=== PATIENT | female | born 1985 | race Caucasian/White ===

== ENCOUNTER 2017-09-28 16:48 | Emergency (ER) | payer BC, OTHER ==
[~2017-09-28] VITALS: Ht 170.2 cm; Wt 104.3 kg
[~2017-09-28 16:48] MED LIST: CETI5 PO; Duoneb 2.5-0.5 M3 ML IH; FLUSAL2505 INH; METCAR750 PO; MONT10T PO; Ortho Tri-Cycl1 EACH; PANT40 PO; Percocet 5-3251 EACH PO; ZYRTEC10 M1; Zithromax250 MG PO
[2017-09-28] MEDS ORDERED: AZIT250 PO (17:48)
[2017-09-28] MEDS ORDERED: RIZATRIPTAN10 MG PO (17:49)
[2017-09-28] MEDS ORDERED: ZYRTEC10 M1 PO (17:49)
[2017-09-28] MEDS ORDERED: PROP80ER PO (17:49)
[2017-09-28 18:42] LABS: Influenza A Negative (NEGATIVE); Influenza B Negative (NEGATIVE)
[2017-09-28] MEDS ORDERED: Albuterol2.5 MG/0.5 INH (20:08)
[2017-09-28] MEDS ORDERED: BUDE.5 NEB (20:08)
[2017-09-28] MEDS ORDERED: Duoneb 2.5-0.5 M3 ML INH (20:08)
== END 2017-09-28 20:19 | disposition home or self-care (01) ==
LOC: ER 16:48
PROVIDERS: Physician Assistant
DX: J45.901 Unspecified asthma with (acute) exacerbation (principal); K21.9 Gastro-esophageal reflux disease without esophagitis; F17.210 Nicotine dependence, cigarettes, uncomplicated; Z88.6 Allergy status to analgesic agent; Z88.5 Allergy status to narcotic agent; Z91.09 Other allergy status, other than to drugs and biological substances; Z79.2 Long term (current) use of antibiotics; Z79.899 Other long term (current) drug therapy; Z96.643 Presence of artificial hip joint, bilateral
CPT/HCPCS: 87804; 94640; 96374; 96375; 96376; 99283; J1200; J1885; J2765; J7030

== ENCOUNTER 2018-06-30 16:20 | Emergency (ER) | payer BC, OTHER ==
[~2018-06-30] VITALS: Ht 170.2 cm; Wt 99.8 kg
[~2018-06-30 16:20] MED LIST changes: +AZIT250 PO; +Albuterol2.5 MG/0.5 INH; +BUDE.5 NEB; +Duoneb 2.5-0.5 M3 ML INH; +PROP80ER PO; +RIZATRIPTAN10 MG PO; +ZYRTEC10 M1 PO
[2018-06-30] MEDS ORDERED: GABA600 PO (16:39)
[2018-06-30] MEDS ORDERED: OXYC1TAB11 PO (16:50)
[2018-06-30 16:57] LABS: BASOPHILS ABSOLUTE AUTO 0.04 K/mm3 (0.00-0.23); BASOPHILS PERCENT AUTO 1 % (0-2); EOSINOPHILS ABSOLUTE AUTO 0.28 K/mm3 (0.00-0.68); EOSINOPHILS PERCENT AUTO 4 % (0-6); Hematocrit 42.6 % (33.0-51.0); Hemoglobin 14.3 g/dL (11.5-16.0); IMMATURE GRAN ABSOLUTE AUTO 0.02 K/mm3 (0.00-0.10); IMMATURE GRAN PERCENT AUTO 0 % (0-1); LYMPHOCYTES ABSOLUTE AUTO 2.29 K/mm3 (0.84-5.20); LYMPHOCYTES PERCENT AUTO 35 % (21-46); MONOCYTES ABSOLUTE AUTO 0.67 K/mm3 (0.16-1.47); MONOCYTES PERCENT AUTO 10 % (4-13); Mean Corpuscular HGB Conc 33.6 g/dL (31.5-36.5); Mean Corpuscular Volume 92 fL (80-100); Mean Platelet Volume 8.9 fL (9.1-12.4); NEUTROPHILS ABSOLUTE AUTO 3.16 K/mm3 (1.96-9.15); NEUTROPHILS PERCENT AUTO 49 % (41-73); Platelet Count 354 K/mm3 (150-400); RDW Coefficient Variation 12.3 % (11.7-14.2); RDW Standard Deviation 41.5 fL (35.1-46.3); Red Blood Cell Count 4.61 M/mm3 (3.80-5.20); White Blood Cell Count 6.46 K/mm3 (4.00-11.30)
[2018-06-30 17:17] LABS: Alanine Aminotransfer (ALT/SGP 41 U/L (12-78); Alk Phos 87 U/L (50-136); Anion Gap 7 mmol/L (6-16); Aspartate Aminotrans (AST/SGOT 24 U/L (12-37); Bilirubin, Total 0.3 mg/dL (0.1-1.0); Blood Urea Nitrogen 7 mg/dL (8-24); Bun/Creatinine Ratio 11.4 (12.0-20.0); CO2, Blood 25 mmol/L (21-32); Calcium, Blood 8.6 mg/dL (8.5-10.1); Chloride, Blood 109 mmol/L (98-108); Creatinine, Blood 0.62 mg/dL (0.40-1.00); Globulin, Blood 3.9 g/dL (2.2-4.0); Glomerular Filtration Rate >60 (60-); Glucose, Blood 97 mg/dL (70-99); Sodium, Blood 141 mmol/L (136-145); Total Protein, Blood 7.9 g/dL (6.4-8.2)
[2018-06-30] MEDS ORDERED: Zofran Odt4 MG SL (18:16)
== END 2018-06-30 18:43 | disposition home or self-care (01) ==
LOC: ER 16:20
PROVIDERS: Physician Assistant
DX: K29.70 Gastritis, unspecified, without bleeding (principal); J45.909 Unspecified asthma, uncomplicated; F17.200 Nicotine dependence, unspecified, uncomplicated; Z88.5 Allergy status to narcotic agent; Z91.09 Other allergy status, other than to drugs and biological substances; Z79.899 Other long term (current) drug therapy; Z79.51 Long term (current) use of inhaled steroids
CPT/HCPCS: 76705; 80053; 83690; 85025; 99284-25

== ENCOUNTER → 2019-12-02 | Outpatient (CLI) | payer OTHER ==
[~2019-12-02] MED LIST changes: +GABA600 PO; +OXYC1TAB11 PO; +Zofran Odt4 MG SL
[2019-12-02 14:51] LABS: Adenovirus F 40/41 Not Detected (NOT DETECT); Astrovirus Not Detected (NOT DETECT); Campylobacter Sp Not Detected (NOT DETECT); Cryptosporidium Not Detected (NOT DETECT); Cyclospora Cayetanensis Not Detected (NOT DETECT); E. Coli O157 Not Detected (NOT DETECT); Entamoeba Histolytica Not Detected (NOT DETECT); Enteroaggregative E. coli-EAEC Not Detected (NOT DETECT); Enteropathogenic E. coli-EPEC Not Detected (NOT DETECT); Enterotoxigenic E. coli-ETEC Not Detected (NOT DETECT); Giardia Lamblia Not Detected (NOT DETECT); Norovirus GI/GII Not Detected (NOT DETECT); Plesiomonas Shigelloides Not Detected (NOT DETECT); Rotavirus A Not Detected (NOT DETECT); Salmonella Sp Not Detected (NOT DETECT); Sapovirus Not Detected (NOT DETECT); Shiga Toxin-prod E. coli-STEC Not Detected (NOT DETECT); Shigella/Enteroin E. coli-EIEC Not Detected (NOT DETECT); Vibrio Cholerae Not Detected (NOT DETECT); Vibrio Sp Not Detected (NOT DETECT); Yersinia Enterocolitica Not Detected (NOT DETECT)
== END | disposition home or self-care (01) ==
LOC: LAB 12:57 → LAB SHORT 12:57
PROVIDERS: Emergency Medicine
DX: R10.84 Generalized abdominal pain (principal); R19.7 Diarrhea, unspecified
CPT/HCPCS: 0097U

== ENCOUNTER 2020-03-04 13:00 | Day surgery (SDC) | payer OTHER ==
[~2020-03-04] VITALS: Ht 167.6 cm; Wt 94.3 kg
[~2020-03-04 13:00] MED LIST changes: +DEXL60CA3 PO; +Ranitidine HCl150 M1; +ZYRTEC10 M2 PO
[2020-03-04] MEDS ORDERED: CYCL10 PO (13:52)
[2020-03-04] MEDS ORDERED: FAMO20 (13:53)
[2020-03-04] MEDS ORDERED: DIPH50 PO (13:54)
--- NOTE | 2020-03-04 15:00 | NUR ---
03/04/[address] WONDERLY AWARE OF PT'S IODINE AND CHLORHEXIDINE ALLERGY. OKAY TO USE BETADINE PREP.
--- NOTE | 2020-03-04 17:08 | NUR ---
03/04/20 1708 Madeline Rudolph UPON ARRIVING TO STEP DOWN PT STATED SHE NEEDED TO USE THE RESTROOM.PT TAKEN TO RESTROOM VIA WHEELCHAIR. PT TRANSFERRED TO THE TOILET WITH STAND BY ASSIST FROM RN. PT UNABLE TO VOID. PT FELT NAUSEATED AND WRETCHED WHILE IN THE RESTROOM X2 WITH CLEAR/YELLOW TINGED EMESIS. PT TAKEN BACK TO ROOM AND TRANSFERRED TO RECLINER. VSS. RN TREATED NAUSEA WITH IV REGLAN PER DR'S ORDERS. AT CHAIRSIDE. COOL CLOTH PROVIDED. BEVERAGES AND SNACKS AT CHAIRSIDE. CALL LIGHT IN REACH. PT VOICED PAIN 03/05 RN TREATED WITH IV PAIN MEDICATION.
== END 2020-03-04 18:02 | disposition home or self-care (01) ==
LOC: ORSCSDS 13:00
PROVIDERS: Obstetrics & Gynecology
PROC: 0UT74ZZ Resection of Bilateral Fallopian Tubes, Percutaneous Endoscopic Approach (ICD-10-PCS; principal; 2020-03-04 14:15)
PROC: 0U5B8ZZ Destruction of Endometrium, Via Natural or Artificial Opening Endoscopic (ICD-10-PCS; principal; 2020-03-04 14:15)
PROC: 0U5F4ZZ Destruction of Cul-de-sac, Percutaneous Endoscopic Approach (ICD-10-PCS; principal; 2020-03-04 14:15)
DX: N92.0 Excessive and frequent menstruation with regular cycle (principal); Z30.2 Encounter for sterilization; Q50.5 Embryonic cyst of broad ligament; N80.3 Endometriosis of pelvic peritoneum; K66.0 Peritoneal adhesions (postprocedural) (postinfection)
CPT/HCPCS: 88302; 88305; J0171; J0330; J0690; J1885; J2250; J2405; J2704; J2765; J3010; J7120

== ENCOUNTER 2022-11-15 12:57 | Emergency (ER) | payer OTHER ==
[~2022-11-15] VITALS: Ht 167.6 cm; Wt 90.7 kg
[~2022-11-15 12:57] MED LIST changes: +CYCL10 PO; +DIPH50 PO; +FAMO20
[2022-11-15 13:31] LABS: BASOPHILS ABSOLUTE AUTO 0.05 K/mm3 (0.00-0.23); BASOPHILS PERCENT AUTO 1 % (0-2); EOSINOPHILS ABSOLUTE AUTO 0.29 K/mm3 (0.00-0.68); EOSINOPHILS PERCENT AUTO 4 % (0-6); Hematocrit 40.9 % (33.0-51.0); Hemoglobin 14.3 g/dL (11.5-16.0); IMMATURE GRAN ABSOLUTE AUTO 0.02 K/mm3 (0.00-0.10); IMMATURE GRAN PERCENT AUTO 0 % (0-1); LYMPHOCYTES ABSOLUTE AUTO 1.82 K/mm3 (0.84-5.20); LYMPHOCYTES PERCENT AUTO 26 % (21-46); MONOCYTES ABSOLUTE AUTO 0.66 K/mm3 (0.16-1.47); MONOCYTES PERCENT AUTO 9 % (4-13); Mean Corpuscular HGB 32.6 pg (26.0-34.0); Mean Corpuscular Volume 93 fL (80-100); Mean Platelet Volume 8.7 fL (9.1-12.4); NEUTROPHILS ABSOLUTE AUTO 4.18 K/mm3 (1.96-9.15); NEUTROPHILS PERCENT AUTO 60 % (41-73); Platelet Count 365 K/mm3 (150-400); RDW Coefficient Variation 11.9 % (11.7-14.2); RDW Standard Deviation 41.1 fL (35.1-46.3); Red Blood Cell Count 4.39 M/mm3 (3.80-5.20); White Blood Cell Count 7.02 K/mm3 (4.00-11.30)
[2022-11-15 13:49] LABS: Bilirubin, Total 0.2 mg/dL (0.1-1.0); Bun/Creatinine Ratio 11.6 (12.0-20.0); Calcium, Blood 9.3 mg/dL (8.5-10.1); Creatinine, Blood 0.77 mg/dL (0.40-1.00); Potassium, Blood 3.6 mmol/L (3.5-5.5)
[2022-11-15 16:33] LABS: Influenza A, PCR NEGATIVE (NEGATIVE); Influenza B, PCR NEGATIVE (NEGATIVE); Resp Syncytial Virus, PCR NEGATIVE (NEGATIVE); SARS-Cov-2 (COVID-19) PCR, MMC NEGATIVE (NEGATIVE)
[2022-11-15] MEDS ORDERED: ALBU90OI INH (17:31)
== END 2022-11-15 17:52 | disposition home or self-care (01) ==
LOC: ER 12:57
PROVIDERS: Emergency Medicine; Student in an Organized Health Care Education/Training Program
DX: R06.02 Shortness of breath (principal); J34.89 Other specified disorders of nose and nasal sinuses; J45.909 Unspecified asthma, uncomplicated; Z20.822 Contact with and (suspected) exposure to COVID-19; Z88.8 Allergy status to other drugs, medicaments and biological substances; Z88.5 Allergy status to narcotic agent; Z91.041 Radiographic dye allergy status; Z79.899 Other long term (current) drug therapy; Z87.891 Personal history of nicotine dependence
CPT/HCPCS: 0241U; 36415; 71045; 80053; 85025; 94640; 94664; J1885; J2405

== ENCOUNTER 2025-08-14 06:37 | Day surgery (SDC) | payer OTHER ==
[~2025-08-14] VITALS: Ht 167.6 cm; Wt 97.9 kg
[2025-08-14] VITALS (12 sets, daily range): BP systolic 120–167; BP diastolic 58–95
[~2025-08-14 06:37] MED LIST changes: +ALBU90OI INH; +AMIT50 PO; +BUPR100 PO; +CeFAZolin Sodium 2,000 MG in NS 100 ML IV SCH; +LANS30EC PO; +UBRELVY50 MG PO
[2025-08-14] MEDS ORDERED: CeFAZolin Sodium 2,000 MG VIAL ONE (06:43)
[2025-08-14] MEDS ORDERED: [UNRECOGNIZED DRUG - REMARK] SC (06:57)
[2025-08-14] MEDS ORDERED: BUTALB-ACETAMI1 EAC6 PO (06:58)
--- NOTE | 2025-08-14 07:27 | NUR ---
Ambulatory in Day Surgery. Pre-Op teaching done. Pt verbalizes understanding. History, Chart, Medications and Allergies reviewed before start of procedure. Patient confirms NPO status and agrees with scheduled surgery. Patient States Post-Procedure ride home has been arranged.
[2025-08-14] MEDS ORDERED: Midazolam HCl 1MG / ML 2ML Vial IV SCH (07:45)
[2025-08-14] MEDS ORDERED: Bupivacaine 0.5% W/EPI 1:200000 SDV 30 ML Vial ONE (07:46)
[2025-08-14] MEDS ORDERED: FentaNYL Citrate 50 MCG/ML 5 ML Injection ONE (07:49)
--- NOTE | 2025-08-14 07:59 | NUR ---
GLASSES PUT IN PATIENT BELONGINS BAG BY .
[2025-08-14] MEDS ORDERED: DiphenhydrAMINE HCl 50 MG/ML 1ML Vial ONE (08:06)
[2025-08-14] MEDS ORDERED: Metoclopramide HCl 5MG / ML 2ML Vial ONE (08:07)
[2025-08-14] MEDS ORDERED: Rocuronium Bromide 10 MG/ML 5ML Injection IV ONE ×2 (08:07→10:45)
[2025-08-14] MEDS ORDERED: Dexamethasone Sod Phos 10 MG/ML 1ML VIAL ONE (08:07)
[2025-08-14] MEDS ORDERED: Ondansetron HCl 2 MG / ML 2ML Vial ONE (08:07)
[2025-08-14] MEDS ORDERED: Ondansetron HCl 2 MG / ML 2ML Vial IV PRN ×2 (10:15→11:15)
[2025-08-14] MEDS ORDERED: Albuterol 2.5 MG/3 ML VIAL INH PRN (10:20)
[2025-08-14] MEDS ORDERED: HYDROmorphone HCl/Pf 1MG SYR IV PRN ×3 (10:20→11:10)
[2025-08-14] MEDS ORDERED: Prochlorperazine Edisylate 10 mg Vial IV PRN (10:20)
[2025-08-14] MEDS ORDERED: FentaNYL Citrate 50 MCG/ML 2 ML Injection IV PRN ×2 (10:20)
[2025-08-14] MEDS ORDERED: Ketorolac Tromethamine 30mg Vial ONE (10:37)
[2025-08-14] MEDS ORDERED: Sugammadex Sodium 200 MG/2ML SDV (100 MG/ML) ONE (10:45)
[2025-08-14] MEDS ORDERED: HYDROmorphone HCl/Pf 1MG SYR ONE ×2 (10:49→11:26)
[2025-08-14] MEDS ORDERED: UBROGEPANT 100 MG PO PRN (11:05)
[2025-08-14] MEDS ORDERED: FLU VACC TS2025-26(6MOS UP)/PF 45 MCG/0.5 ML SYRINGE IM SCH (11:10)
[2025-08-14] MEDS ORDERED: Naloxone HCl 0.4MG / ML 1ML Vial IV PRN (11:15)
[2025-08-14] MEDS ORDERED: OxyCODONE 5 mg/Acetamin 325 mg TABLET PO PRN (11:20)
[2025-08-14] MEDS ORDERED: Ketorolac Tromethamine 30mg Vial IV PRN (11:30)
--- NOTE | 2025-08-14 12:20 | NUR ---
ARRIVAL TO SURG FLOOR TO FLOOR VIA GURNEY. A&O x4 - VSS. ON 2L O2 VIA NC w/SATS >93%. ATTEMPTED TO VOID ON ARRIVAL - UNSUCCESSFUL. LAP SITES x4 - C/D/I. SNACKS & DRINKS GIVEN. RESTING IN BED w/ AT BEDSIDE.
[2025-08-14] MEDS ORDERED: CeFAZolin Sodium 2,000 MG in NS 100 ML IV SCH (14:00)
[2025-08-14] MEDS ORDERED: ESTRADIOL2 MG PO (15:00)
[2025-08-14] MEDS ORDERED: Percocet 5-3251 EACH PO (15:06)
[2025-08-14] MEDS ORDERED: PROM25 PO (15:06)
[2025-08-14] MEDS ORDERED: SIME80CH PO (15:07)
--- NOTE | 2025-08-14 15:18 | NUR ---
DISCHARGE SUMMARY S/P LAP HYSTER. LAP SITES x4 - C/D/I. VOIDED SUCCESSFULLY. PAIN CONTROLLED WELL PER EMAR. STATES DESIRE TO DC HOME. TOLERATING FOOD & FLUIDS WELL. AMBULATED IN ROOM. DISCHARGE INSTRUCTIONS REVIEWED & GIVEN. ADDITIONAL SCRIPT SENT.
== END 2025-08-14 15:20 | disposition home or self-care (01) ==
LOC: ORSCMMR 06:37 → ORD 08:00 → SURS 11:36 → ORSCMMR 15:20
PROVIDERS: Obstetrics & Gynecology
PROC: 0UB44ZX Excision of Uterine Supporting Structure, Percutaneous Endoscopic Approach, Diagnostic (ICD-10-PCS; principal; 2025-08-14 08:00)
PROC: 0UT9FZZ Resection of Uterus, Via Natural or Artificial Opening With Percutaneous Endoscopic Assistance (ICD-10-PCS; principal; 2025-08-14 08:00)
PROC: 0UT2FZZ Resection of Bilateral Ovaries, Via Natural or Artificial Opening With Percutaneous Endoscopic Assistance (ICD-10-PCS; principal; 2025-08-14 08:00)
DX: N92.1 Excessive and frequent menstruation with irregular cycle (principal); N94.5 Secondary dysmenorrhea; N94.10 Unspecified dyspareunia; N99.85 Post endometrial ablation syndrome; N95.8 Other specified menopausal and perimenopausal disorders; R10.23 Pelvic and perineal pain bilateral; N83.12 Corpus luteum cyst of left ovary; N80.30 Endometriosis of pelvic peritoneum, unspecified; Z79.899 Other long term (current) drug therapy; K21.9 Gastro-esophageal reflux disease without esophagitis; F41.9 Anxiety disorder, unspecified; Z96.643 Presence of artificial hip joint, bilateral; Z87.891 Personal history of nicotine dependence
CPT/HCPCS: 86850; 86900; 86901; 88305; 88307; A9270; J0690; J1100; J1171; J1200; J1885; J2250; J2405; J2704; J2765; J3010; J7120